=== PATIENT | female | born 1975 | race African-American/Black ===

== ENCOUNTER 2018-10-16 16:17 | Emergency (ER) | payer OTHER ==
[2018-10-16 16:24] VITALS: BP 163/99; PULSE 106; TEMP 98.1; BMI 39.4
--- NOTE | 2018-10-16 17:31 | PDOC ---
History of Present Illness - General Chief Complaint: Sore Throat Stated Complaint: EAR AND THROAT PAIN, DIZZINESS Time Seen by Provider: 10/16/18 16:42 History Source: Patient Exam Limitations: No Limitations - History of Present Illness Initial Comments: 10/16/18 17:18 HISTORY OF PRESENT ILLNESS: 43-year-old woman past medical history of hyperlipidemia presents emergency department for evaluation of bilateral ear fullness and sore throat for 1 day. Patient reports symptoms started upon waking this morning. She denies facial pain, headaches, nausea, vomiting, chest pain, shortness of breath. No recent travel or sick contacts. PAST MEDICAL HISTORY: HLD SURGICAL HISTORY: Denies ALLERGIES: No known drug allergies REVIEW OF SYSTEMS General/Constitutional: Denies fever or chills. Denies weakness, weight change. HEENT: Denies change in vision. Clogged ears. +sore throat. Cardiovascular: Denies chest pain or shortness of breath. Respiratory: Denies cough, wheezing, or hemoptysis. Gastrointestinal: Denies nausea, vomiting, diarrhea or constipation. Denies rectal bleeding. Genitourinary: Denies dysuria, frequency, or change in urination. Musculoskeletal: Denies joint or muscle swelling or pain. Denies neck or back pain. Skin and breasts: Denies rash or easy bruising. Neurologic: Denies headache, vertigo, loss of consciousness, or loss of sensation. Psychiatric: Denies depression or anxiety. Endocrine: Denies increased thirst. Denies abnormal weight change. Hematologic/Lymphatic: Denies anemia, easy bleeding, or history of blood clots. Allergic/Immunologic: Denies hives or skin allergy. Denies latex allergy. PHYSICAL EXAM General Appearance: Well-appearing, appropriately dressed. No apparent distress , no intoxication. HEENT: EOMI, PERRLA, normal voice, TMs normal. No conjunctival pallor. No photophobia, scleral icterus. No tragal tenderness. Mild erythema to tonsillar pilars. Neck: Supple. Trachea midline. No tenderness, rigidity, carotid bruit, stridor , lymphadenopathy, or thyromegaly. Respiratory/Chest: Lungs CTAB. No shortness of breath, chest tenderness, respiratory distress, accessory muscle use. No crackles, rales, rhonchi, stridor , wheezing, dullness Cardiovascular: RRR. S1, S2. No JVD, murmur, bradycardia, tachycardia. Neurologic: tattoo technician II-XII intact. Fully oriented, alert. Appropriate mood/affect. Motor strength 5/5. No appreciable EOM palsy, facial droop or sensory deficit. Past History - Past Medical History Allergies/Adverse Reactions: Allergies Allergy/AdvReac Type Severity Reaction Status Date / Time No Known Allergies Allergy Verified 10/16/18 16:24 Home Medications: Ambulatory Orders Atorvastatin Ca [Lipitor -] 20 mg PO HS 12/02/14 COPD: No HTN: Yes (non medicated) Hypercholesterolemia: Yes - Suicide/Smoking/Psychosocial Hx Smoking History: Never smoked Have you smoked in the past 12 months: No Hx Alcohol Use: No Drug/Substance Use Hx: No Substance Use Type: None *Physical Exam - Vital Signs Last Vital Signs Temp Pulse Resp BP Pulse Ox 98.1 F 106 H 20 163/99 100 10/16/18 16:21 10/16/18 16:21 10/16/18 16:21 10/16/18 16:21 10/16/18 16:21 Moderate Sedation - Procedure Monitoring Vital Signs: Procedure Monitoring Vital Signs Temperature 98.1 F 10/16/18 16:21 Pulse Rate 106 H 10/16/18 16:21 Respiratory Rate 20 10/16/18 16:21 Blood Pressure 163/99 10/16/18 16:21 O2 Sat by Pulse Oximetry (%) 100 10/16/18 16:21 Medical Decision Making - Medical Decision Making 10/16/18 17:32 A/P: 43-year-old woman with 1 day clogged ears and sore throat TMs within normal limits bilaterally. No tragal tenderness. No mastoid tenderness Mild erythema to the tonsillar pillars No halitosis noted No cervical lymphadenopathy noted Lungs clear to auscultation bilaterally Influenza testing reassess 10/16/18 17:38 Influenza negative. I discussed the physical exam findings, ancillary test results and final diagnoses with the patient. I answered all of the patient's questions. The patient was satisfied with the care received and felt comfortable with the discharge plan and treatment plan. The patient will call their primary care physician within 24 hours to arrange follow-up and will return to the Emergency Department with any new, persistent or worsening symptoms. *DC/Admit/Observation/Transfer Diagnosis at time of Disposition: URI (upper respiratory infection) Qualifiers: URI type: unspecified viral URI Qualified Code(s): J06.9 - Acute upper respiratory infection, unspecified - Discharge Dispostion Disposition: HOME Condition at time of disposition: Stable Decision to Admit order: No - Referrals Referrals: Lv Birmingham MD [Primary Care Provider] - - Patient Instructions Additional Instructions: Rest, drink lots of fluids: Teas, water, soups, Pedialyte Saltwater gargles Steamy showers/seem to face break up mucus Avoid contact with others until fevers and cough resolved Lots of handwashing and good hygiene Continue [id number] medications for symptomatic relief Tylenol or Motrin for fever and pain Followup with private physician in one to 2 days as needed Return to emergency department for worsened symptoms, fevers, dehydration - Post Discharge Activity Forms/Work/School Notes: Back to Work
== END 2018-10-16 17:39 | disposition home or self-care (01) ==
LOC: JERFT 16:17
DX: J06.9 Acute upper respiratory infection, unspecified (principal); I10 Essential (primary) hypertension; E78.5 Hyperlipidemia, unspecified
CPT/HCPCS: 87804; 99281-25

== ENCOUNTER 2020-04-26 18:33 | Emergency (ER) | payer OTHER ==
[2020-04-26] MEDS ORDERED: SODIUM CHLORIDE 1,000 ML IV STA (18:42)
[2020-04-26] MEDS ORDERED: FAMOTIDINE 10 MG TABLET PO ONE (18:42)
[2020-04-26] MEDS ORDERED: MAG HYDROX/AL HYDROX/SIMETH 30 ML UNIT-DOSE CUP PO ONE (18:42)
--- NOTE | 2020-04-26 18:42 | PDOC ---
Rapid Medical Evaluation Time Seen by Provider: 04/26/20 18:39 Medical Evaluation: Allergies Allergy/AdvReac Type Severity Reaction Status Date / Time No Known Allergies Allergy Verified 10/16/18 16:24 04/26/20 18:39 I have performed a brief in-person evaluation of this patient. CC: LUQ "gassy" feeling. PE: Abd SNTND. Orders: labs, urine. Maalox, pepcid, NS, Imaging deferred to ED provider Patient will proceed to ED for further evaluation. 04/26/20 18:41 Discharge Disposition - Diagnosis LUQ abdominal pain - Referrals - Patient Instructions - Post Discharge Activity
[2020-04-26 18:43] VITALS: TEMP 98.6; BMI 38.6
[2020-04-26] MEDS ORDERED: FAMOTIDINE 10 MG TABLET ONE (18:52)
[2020-04-26] MEDS ORDERED: MAG HYDROX/AL HYDROX/SIMETH 30 ML UNIT-DOSE CUP ONE (18:52)
[2020-04-26 19:42] LABS: BASO % 0.7 % (0-2.0); EOS % 1.3 % (0-4.5); HEMATOCRIT 38.6 % (32.4-45.2); HEMOGLOBIN 13.1 GM/dL (10.7-15.3); LYMPH % 37.4 % (8-40); MCH 28.7 pg (25.7-33.7); MCHC 33.9 g/dl (32.0-36.0); MEAN CELL VOLUME 84.6 fl (80-96); MEAN PLT VOLUME 8.8 fl (7.5-11.1); MONO % 5.5 % (3.8-10.2); NEUT % 55.1 % (42.8-82.8); PLATELET COUNT 361 K/MM3 (134-434); RBC 4.57 M/mm3 (3.60-5.2); RDW 13.9 % (11.6-15.6)
[2020-04-26] MEDS ORDERED: POLYETHYLENE GLYCOL 3350 119 GM BTL PO ONE (19:45)
[2020-04-26 19:47] LABS: EPI CELLS 6 /uL (0-25.1); HCG,QUALITATIVE URINE Negative; HYALINE CASTS 0 /uL (0-3.1); PH,URINE 5.5 (5.0-8.0); URINE APPEARANCE CLEAR; URINE BACTERIA 178 /uL (0-1359); URINE BILIRUBIN NEGATIVE (NEGATIVE); URINE COLOR YELLOW; URINE GLUCOSE (UA) NEGATIVE (NEGATIVE); URINE KETONE NEGATIVE (NEGATIVE); URINE LEUK ESTERASE TRACE (NEGATIVE); URINE NITRITE NEGATIVE (NEGATIVE); URINE PROTEIN NEGATIVE (NEGATIVE); URINE RBC 5 /uL (0-23.9); URINE WBC 12 /uL (0-25.8)
[2020-04-26] MEDS ORDERED: LACTULOSE 20 GM/30 ML UDC (FOR ORAL USE ONLY) PO ONE ×2 (19:47→20:43)
--- NOTE | 2020-04-26 20:10 | PDOC ---
History of Present Illness - General Chief Complaint: Pain Stated Complaint: ABD PAIN Time Seen by Provider: 04/26/20 18:39 History Source: Patient Exam Limitations: Clinical Condition - History of Present Illness Travel History: No Initial Comments: 04/26/20 20:16 Patient with past medical history of hypertension amlodipine presented with complaint of 4 months history of intermittent constipation and gassy abdominal pain which she has seen her PCP in December for symptoms which she was advised was gas pain to take Tums and symptoms improved until few days ago when he started again. Patient reported that amlodipine has been causing her to have const ipation and not having frequent bowel movement as usual the day before started taking amlodipine few months ago. Patient reported last bowel movement 3 days ago. Patient reported pain as left upper quadrant gassy pain. Denies nausea, vomiting, diarrhea, fever, chills, shortness of breath, chest pain. Denies recent travel. Patient report taking antacid this morning for symptoms with minimal improvement Timing/Duration: reports: intermittent Quality: reports: aching Abdominal Pain Onset Location: reports: LUQ Pain Radiation: reports: no radiation Treatment Prior to Arrive: improves with: antacids Aggravating Factors: improves with: None Alleviating Factors: improves with: Belching Past History - Medical History Allergies/Adverse Reactions: Allergies Allergy/AdvReac Type Severity Reaction Status Date / Time hydrochlorothiazide Allergy Mild Rash Verified 04/26/20 18:44 Home Medications: Ambulatory Orders Atorvastatin Ca [Lipitor -] 20 mg PO HS 12/02/14 Linaclotide [Linzess] 72 mcg PO DAILY PRN #10 capsule 04/26/20 Polyethylene Glycol 3350 [Miralax (For Daily Use) -] 17 gm PO DAILY #1 bottle 04/26/20 COPD: No HTN: Yes (non medicated) Hypercholesterolemia: Yes - Psycho-Social/Smoking History Smoking History: Never smoked Have you smoked in the past 12 months: No Information on smoking cessation initiated: No - Substance Abuse Hx (Audit-C & DAST Scrn) How often the patient has a drink containing alcohol: Monthly or less Number of drinks the patient has on a typical day: 1 or 2 How often the patient has six or more drinks on one occasion: Never Score: In Men: 4 or > Positive; In Women: 3 or > Positive: 1 Screen Result (Pos requires Nsg. Audit-10AR): Negative In the last yr the pt used illegal drug/Rx for NonMed reason: No Score: Yes response is considered Positive: 0 Screen Result (Positive result requires Nsg. DAST-10): Negative Review of Systems - Review of Systems Able to Perform ROS?: Yes Is the patient limited Kazakh proficient: No Constitutional: No: Chills, Fever, Malaise HEENTM: No: Symptoms Reported, See HPI, Eye Pain, Blurred Vision, Tearing, Recent change in vision, Double Vision, Cataracts, Ear Pain, Ocular Prothesis, Ear Discharge, Nose Pain, Nose Congestion, Tinnitus, Nose Bleeding, Hearing Loss, Throat Pain, Throat Swelling, Mouth Pain, Dental Problems, Difficulty Swallowing, Mouth Swelling, Other Respiratory: No: Symptoms reported, See HPI, Cough, Orthopnea, Shortness of Breath, SOB with Exertion, SOB at Rest, Stridor, Wheezing, Productive cough, Hemoptysis, Other Cardiac (ROS): No: Symptoms Reported ABD/GI: Yes: Symptoms Reported, See HPI, Constipated, Indigestion, Abdominal cramping (gassy pain). No: Abdominal Distended, Abd. Pain w/ defecation, Diarrhea, Difficulty Swallowing, Nausea, Poor Fluid Intake, Rectal Bleeding, Vomiting, Tarry Stools : No: Symptoms Reported Musculoskeletal: No: Symptoms Reported Integumentary: No: Symptoms Reported Neurological: No: Symptoms reported All Other Systems: Reviewed and Negative *Physical Exam - Vital Signs Last Vital Signs Temp Pulse Resp BP Pulse Ox 98.6 F 111 H 18 154/94 100 04/26/20 18:40 04/26/20 18:40 04/26/20 18:40 04/26/20 18:40 04/26/20 18:40 - Physical Exam 04/26/20 20:15 GENERAL: Well developed, well nourished. Awake and alert. No acute distress. HEENT: Normocephalic, atraumatic. PERRLA, EOMI. No conjunctival pallor. Sclera are non-icteric. Moist mucous membranes. Oropharynx is clear. NECK: Supple. Full ROM. CARDIOVASCULAR: Regular rate and rhythm. No murmurs, rubs, or gallops. Distal pulses are 2+ and symmetric. PULMONARY: No evidence of respiratory distress. Lungs clear to auscultation bilaterally. No wheezing, rales or rhonchi. ABDOMINAL: Soft. Non-tender. Non-distended. No rebound or guarding. No organomegaly. Increased diffuse bowel sounds. MUSCULOSKELETAL Normal range of motion at all joints. SKIN: Warm and dry. Normal capillary refill. No rashes. No cyanosis. NEUROLOGICAL: Alert, awake, appropriate. Gait is normal without ataxia. PSYCHIATRIC: Cooperative. Good eye contact. Appropriate mood General Appearance: Yes: Nourished, Appropriately Dressed. No: Apparent Distress ED Treatment Course - LABORATORY CBC & Chemistry Diagram: 04/26/20 19:30 04/26/20 19:30 - ADDITIONAL ORDERS Additional order review: Laboratory Results 04/26/20 19:30 Urine Color Yellow Urine Appearance Clear Urine pH 5.5 Ur Specific [place] 1.014 Urine Protein Negative Urine Glucose (UA) Negative Urine Ketones Negative Urine Blood Negative Urine Nitrite Negative Urine Bilirubin Negative Urine Urobilinogen 1.0 Ur Leukocyte Esterase Trace Urine WBC (Auto) 12 Urine RBC (Auto) 5 Urine Casts (Auto) 0 U Epithel Cells (Auto) 6 Urine Bacteria (Auto) 178 Urine HCG, Qual Negative 04/26/20 19:30 RBC 4.57 MCV 84.6 MCHC 33.9 RDW 13.9 MPV 8.8 Neutrophils % 55.1 D Lymphocytes % 37.4 D Monocytes % 5.5 Eosinophils % 1.3 D Basophils % 0.7 - RADIOLOGY Radiology Studies Ordered: Category Date Time Status ABDOMEN FLAT & UPRIGHT [RAD] Stat Radiology 04/26/20 19:46 Ordered - Medications Given in the ED: ED Medications Discontinued Medications Generic Name Dose Route Start Last Admin Trade Name Freq PRN Reason Stop Dose Admin Al Hydroxide/Mg Hydroxide 30 ml 04/26/20 18:42 04/26/20 19:26 Mylanta Oral Suspension - PO 04/26/20 18:43 30 ml ONCE ONE Administration Famotidine 10 mg 04/26/20 18:42 04/26/20 19:26 Acid Experimental Rocketsled Mechanic PO 04/26/20 18:43 10 mg ONCE ONE Administration Sodium Chloride 1,000 mls @ 1,000 mls/hr 04/26/20 18:42 04/26/20 19:27 Normal Saline - IV 04/26/20 19:41 1,000 mls/hr ASDIR STA Administration Lactulose 20 gm 04/26/20 19:47 04/26/20 19:56 Cephulac (Oral Use) PO 04/26/20 19:48 Not Given ONCE ONE Medical Decision Making - Medical Decision Making 04/26/20 20:18 Patient with past medical history of hypertension amlodipine presented with complaint of 4 months history of intermittent constipation and gassy abdominal pain which she has seen her PCP in December for symptoms which she was advised was gas pain to take Tums and symptoms improved until few days ago when he started again. Patient reported that amlodipine has been causing her to have constipated and not having frequent bowel movement as usual the day before started taking amlodipine few months ago. Patient reported last bowel movement 3 days ago. Patient reported pain as left upper quadrant gassy pain. Denies nausea, vomiting, diarrhea, fever, chills, shortness of breath, chest pain. Denies recent travel. Patient report taking antacid this morning for symptoms with minimal improvement Exam significant for mild subjective tenderness right upper quadrant with diffuse increased bowel sounds. No guarding or rebound. Patient in no acute distress sitting down comfortably. Patient afebrile. CBC done shows no acute abnormality. Chemistry lab pending. Maalox 30 mL p.o. given for gas pain. Will add MiraLAX 17 g p.o. to help with bowel movement. KUB abdominal x-ray ordered to rule out obstruction. Treat based on lab and imaging results 04/26/20 22:08 KUB x-ray shows no obstruction but shows retained stool. Patient stable for discharge on MiraLAX and Linzess with GI follow-up. Discharge - Discharge Information Problems reviewed: Yes Clinical Impression/Diagnosis: LUQ abdominal pain Constipation Qualifiers: Constipation type: slow transit constipation Qualified Code(s): K59.01 - Slow transit constipation Condition: Stable Disposition: HOME - Admission No - Additional Discharge Information Prescriptions: Linaclotide [Linzess] 72 mcg PO DAILY PRN #10 capsule PRN Reason: Constipation Polyethylene Glycol 3350 [Miralax (For Daily Use) -] 17 gm PO DAILY #1 bottle - Follow up/Referral Referrals: Lv Birmingham MD [Primary Care Provider] - Fernando Hurst DO [Staff Physician] - - Patient Discharge Instructions Patient Printed Discharge Instructions: Increased Dietary Fiber May Improve Constipation Conditions With Pelvic Abad, DI for Constipation Additional Instructions: Your blood work is normal. Abdominal x-ray shows stool which is likely the cause of your abdominal pain from constipation. Take prescribed medication as prescribed for constipation. Increase fluid intake and exercise to help your body move the bowel. Follow-up referred GI as soon as possible - Post Discharge Activity
[2020-04-26 20:28] LABS: ALBUMIN 3.8 g/dl (3.4-5.0); BILIRUBIN,TOTAL 0.3 mg/dL (0.2-1); BLOOD UREA NITROGEN 10.6 mg/dL (7-18); CALCIUM 9.5 mg/dL (8.5-10.1); CREATININE 0.9 mg/dL (0.55-1.3); POTASSIUM 4.1 mmol/L (3.5-5.1); TOT PROT 7.9 g/dl (6.4-8.2)
[2020-04-26] MEDS ORDERED: LACTULOSE 20 GM/30 ML UDC (FOR ORAL USE ONLY) ONE (20:49)
[2020-04-26 20:57] VITALS: BP 138/79; PULSE 90
--- NOTE | 2020-04-27 15:00 | EKG ---
Test Reason : Blood Pressure : / mmHG Vent. Rate : 099 BPM Atrial Rate : 099 BPM P-R Int : 170 ms QRS Dur : 078 ms QT Int : 352 ms P-R-T Axes : 043 014 018 degrees QTc Int : 451 ms NORMAL SINUS RHYTHM NORMAL ECG WHEN COMPARED WITH ECG OF 05-FEB-2016 20:42, CRITERIA FOR SEPTAL INFARCT ARE NO LONGER PRESENT Confirmed by CHARLINE ISAAC MD ([id number]) on 04/27/2020 3:00:02 PM Referred By: Confirmed By:CHARLINE ISAAC MD
== END 2020-04-26 20:57 | disposition home or self-care (01) ==
LOC: JER 18:33
PROC: 3E0337Z Introduction of Electrolytic and Water Balance Substance into Peripheral Vein, Percutaneous Approach (ICD-10-PCS; principal; 2020-04-26)
DX: R10.12 Left upper quadrant pain (principal); K59.01 Slow transit constipation
CPT/HCPCS: 36415; 74019-TC-FY; 80053; 81003; 83690; 84703; 85025; 87086; 93005; 93010; 99285-25

== ENCOUNTER 2020-11-19 07:22 | Emergency (ER) | payer OTHER ==
[2020-11-19 07:47] VITALS: BMI 39.6
[2020-11-19] MEDS ORDERED: KETOROLAC TROMETHAMINE 30 MG/1 ML VIAL IM ONE (08:14)
[2020-11-19] MEDS ORDERED: KETOROLAC TROMETHAMINE 30 MG/1 ML VIAL ONE (08:22)
[2020-11-19] MEDS ORDERED: PENICILLIN G BENZATHINE 1,200,000 UNIT/2 ML PFS IM ONE ×2 (09:28→09:49)
[2020-11-19 09:37] VITALS: BP 139/90; PULSE 124; TEMP 99.2
== END 2020-11-19 11:26 | disposition home or self-care (01) ==
LOC: JER 07:22
PROC: 3E0233Z Introduction of Anti-inflammatory into Muscle, Percutaneous Approach (ICD-10-PCS; principal; 2020-11-19)
PROC: 3E02329 Introduction of Other Anti-infective into Muscle, Percutaneous Approach (ICD-10-PCS; 2020-11-19)
DX: J02.0 Streptococcal pharyngitis (principal)
CPT/HCPCS: 87880; 99284-25